=== PATIENT | female | born 1960 | race Two or more races ===

== ENCOUNTER 2018-09-14 19:55 | Emergency (ER) | payer OTHER ==
[~2018-09-14] VITALS: Ht 165.1 cm; Wt 82.0 kg
[2018-09-14] MEDS ORDERED: ACETAMINOPHEN 500MG TABLET PO ONE (23:15)
[2018-09-15 01:20] VITALS: BP 113/67
== END 2018-09-15 01:41 | disposition home or self-care (01) ==
LOC: ER 19:55
DX: S62.601A Fracture of unspecified phalanx of left index finger, initial encounter for closed fracture (principal); E11.9 Type 2 diabetes mellitus without complications; Z90.49 Acquired absence of other specified parts of digestive tract; Z90.710 Acquired absence of both cervix and uterus; X58.XXXA Exposure to other specified factors, initial encounter; Y93.89 Activity, other specified; Y92.89 Other specified places as the place of occurrence of the external cause; Y99.8 Other external cause status
CPT/HCPCS: 73130; 99283